=== PATIENT | female | born 1960 | race American Indian/Alaskan Native ===

== ENCOUNTER 2020-07-03 12:10 | Emergency (ER) | payer OTHER ==
[2020-07-03] MEDS ORDERED: IBUPROFEN 600 MG TAB PO ONE (12:43)
--- NOTE | 2020-07-03 13:02 | Event Note ---
ED Screening Note Date of service: 07/03/20 Time: 13:01 ED Screening Note: 60-year-old -[place] female presents to the emergency room for complaining of dizziness headache with body aches chest pain shortness of breath for a week. This initial assessment/diagnostic orders/clinical plan/treatment(s) is/are subject to change based on patients health status, clinical progression and re- assessment by fellow clinical providers in the ED. Further treatment and workup at subsequent clinical providers discretion. Patient/guardian urged not to elope from the ED as their condition may be serious if not clinically assessed and managed. Initial orders include:
[2020-07-03 13:16] LABS: Hematocrit 43.7 % (30.3-42.9); Mean Corpuscular HGB Conc 32 % (30-34); Mean Corpuscular Volume 82 fl (79-97); Platelet Count 246 K/mm3 (140-440); Red Blood Count 5.34 M/mm3 (3.65-5.03)
--- NOTE | 2020-07-03 13:25 | Cat Scan Report ---
CT HEAD WITHOUT CONTRAST INDICATION / CLINICAL INFORMATION: dizziness off balance. TECHNIQUE: All CT scans at this location are performed using CT dose reduction for ALARA by means of automated e xposure control. COMPARISON: None available. FINDINGS: HEMORRHAGE: None. EXTRA-AXIAL SPACES: Normal in size and morphology for the patient's age. VENTRICULAR SYSTEM: Normal in size and morphology for the patient's age. CEREBRAL PARENCHYMA: Mild hypoattenuation within the periventricular white matter compatible with chr onic microangiopathic disease. There are tiny chronic right basal ganglia lacunar-type infarcts versu s prominent perivascular spaces. No acute territorial infarct. MIDLINE SHIFT OR HERNIATION: None. CEREBELLUM / BRAINSTEM: No significant abnormality. ORBITS: Normal as visualized. SOFT TISSUES of HEAD: No significant abnormality. CALVARIUM: No significant abnormality. PARANASAL SINUSES / MASTOID AIR CELLS: Normal as visualized. ADDITIONAL FINDINGS: None. IMPRESSION: 1. No acute intracranial abnormality. 2. Mild age-appropriate atrophy and microangiopathic disease. Signer Name: Jcarlos Rivera MD Signed: 07/03/2020 1:21 PM Workstation Name: [id number]
--- NOTE | 2020-07-03 13:37 | XRay Report ---
CHEST 2 VIEWS INDICATION / CLINICAL INFORMATION: sob, chest pain. COMPARISON: None available. FINDINGS: SUPPORT DEVICES: None. HEART / MEDIASTINUM: No significant abnormality. LUNGS / PLEURA: No significant pulmonary or pleural abnormality. Several tiny calcified granulomata a re seen throughout the lungs. No pneumothorax. ADDITIONAL FINDINGS: No significant additional findings. IMPRESSION: No acute cardiopulmonary abnormality. Signer Name: Jcarlos Rivera MD Signed: 07/03/2020 1:32 PM Workstation Name: [id number]
--- NOTE | 2020-07-03 13:39 | Emergency Department Report ---
ED General Adult HPI - General Chief complaint: Pain General Stated complaint: UPPER BODY PAIN/DIZZY/HEADACHE Time Seen by Provider: 07/03/20 13:35 Source: patient Mode of arrival: Ambulatory Limitations: No Limitations - History of Present Illness Initial comments: This is a 60-year-old female with essentially multisystems complaint/along with grossly positive review of systems. The patient's chief complaint appears to be left anterior shoulder upper outer quadrant of the chest dull ache which generally occurs at night. She states her boyfriend puts a topical salve on it and that relieves the pain and helps her fall asleep. She has had the symptoms since 24 June. This is the first time that she has gone for a medical encounter although she attempted to get an appointment earlier. She states that she was not seen because she had requested a Covid test and directed to have that done. The test came back and was negative. 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 She has her temperature taken every day and she has been afebrile. Among her other symptoms she reports weakness, dizziness, urinary frequency, occasional cough. She does not complain of difficulty in breathing. Patient reports no chronic medical conditions. No surgery other than a hysterectomy. No current medications. -: week(s) (More than a week) Location: head, left (Shoulder and anterior chest) Radiation: non-radiation (And nonpleuritic) Severity scale (0 -10): 6 Quality: other (Heaviness) Consistency: intermittent (Unrelated to exercise) Improves with: other (Topical analgesia) Worsens with: none Associated Symptoms: cough (Seems to be infrequent), headaches, malaise, nausea/vomiting (States vomited yesterday), weakness. denies: shortness of breath Treatments Prior to Arrival: none - Related Data Previous Rx's Medication Instructions Recorded Last Taken Type Nitrofurantoin Lehigh/M-Cryst 100 mg PO Q12HR #14 capsule 07/03/20 Unknown Rx [Macrobid CAP] traMADoL [Ultram 50 MG tab] 50 mg PO Q6HR PRN #10 tablet 07/03/20 Unknown Rx Allergies Allergy/AdvReac Type Severity Reaction Status Date / Time No Known Allergies Allergy Unverified 07/03/20 12:22 ED Review of Systems ROS: Stated complaint: UPPER BODY PAIN/DIZZY/HEADACHE Other details as noted in HPI Constitutional: chills (Possibly no fever). denies: fever Eyes: denies: eye pain, vision change ENT: denies: ear pain, throat pain Respiratory: cough (Infrequent). denies: shortness of breath, wheezing Cardiovascular: as per HPI, chest pain. denies: palpitations Endocrine: no symptoms reported Gastrointestinal: vomiting (X1 yesterday). denies: abdominal pain, nausea, diarrhea Genitourinary: frequency. denies: urgency, dysuria, discharge Musculoskeletal: denies: back pain, joint swelling, arthralgia Skin: denies: rash, lesions Neurological: headache, other (No focal neurological change. No change in speech coordination or gait). denies: weakness, numbness, paresthesias Psychiatric: denies: anxiety, depression Hematological/Lymphatic: denies: easy bleeding, easy bruising ED Past Medical Hx - Past Medical History Previous Medical History?: Yes Hx Kidney Stones: Yes Additional medical history: Vaginal delivery x 2 - Surgical History Past Surgical History?: Yes Additional Surgical History: Hysterectomy - Social History Smoking Status: Never Smoker Substance Use Type: Alcohol - Medications Home Medications: Home Medications Medication Instructions Recorded Confirmed Last Taken Type Nitrofurantoin Lehigh/M-Cryst 100 mg PO Q12HR #14 capsule 07/03/20 Unknown Rx [Macrobid CAP] traMADoL [Ultram 50 MG tab] 50 mg PO Q6HR PRN #10 tablet 07/03/20 Unknown Rx ED Physical Exam - General Limitations: No Limitations General appearance: alert, in no apparent distress - Head Head exam: Present: atraumatic, normocephalic - Eye Eye exam: Present: normal appearance. Absent: scleral icterus - ENT ENT exam: Present: mucous membranes moist - Neck Neck exam: Present: normal inspection - Respiratory Respiratory exam: Present: normal lung sounds bilaterally, chest wall tenderness (In the area she refers). Absent: respiratory distress - Cardiovascular Cardiovascular Exam: Present: regular rate, normal rhythm. Absent: systolic murmur, diastolic murmur, rubs, gallop - GI/Abdominal GI/Abdominal exam: Present: soft, normal bowel sounds. Absent: distended, tenderness, guarding, rebound, rigid - Extremities Exam Extremities exam: Present: normal inspection - Back Exam Back exam: Present: normal inspection - Neurological Exam Neurological exam: Present: alert, oriented X3, CN II-XII intact. Absent: motor sensory deficit - Psychiatric Psychiatric exam: Present: normal mood, flat affect - Skin Skin exam: Present: warm, dry, intact, normal color. Absent: rash ED Course Vital Signs 07/03/20 07/03/20 07/03/20 12:23 12:47 13:44 Temperature 98.0 F Pulse Rate 61 57 L Respiratory 18 20 16 Rate Blood Pressure 111/80 Blood Pressure 125/80 [Left] O2 Sat by Pulse 98 100 Oximetry ED Medical Decision Making - Lab Data Result diagrams: 07/03/20 12:55 07/03/20 12:55 Laboratory Results - last 24 hr 07/03/20 07/03/20 07/03/20 12:55 12:55 12:55 WBC 7.6 RBC 5.34 H Hgb 14.0 Hct 43.7 H MCV 82 MCH 26 L MCHC 32 RDW 15.0 Plt Count 246 Sodium 140 Potassium 4.2 Chloride 105.7 Carbon Dioxide 28 Anion Gap 11 BUN 10 Creatinine 0.6 Estimated GFR > 60 BUN/Creatinine Ratio 17 Glucose 87 Calcium 9.3 Total Bilirubin 0.50 AST 14 ALT 10 Alkaline Phosphatase 61 Troponin T < 0.010 Total Protein 7.1 Albumin 4.3 Albumin/Globulin Ratio 1.5 Laboratory Results - last 24 hr 07/03/20 07/03/20 07/03/20 12:55 12:55 12:55 WBC 7.6 RBC 5.34 H Hgb 14.0 Hct 43.7 H MCV 82 MCH 26 L MCHC 32 RDW 15.0 Plt Count 246 Sodium 140 Potassium 4.2 Chloride 105.7 Carbon Dioxide 28 Anion Gap 11 BUN 10 Creatinine 0.6 Estimated GFR > 60 BUN/Creatinine Ratio 17 Glucose 87 Calcium 9.3 Total Bilirubin 0.50 AST 14 ALT 10 Alkaline Phosphatase 61 Troponin T < 0.010 Total Protein 7.1 Albumin 4.3 Albumin/Globulin Ratio 1.5 Urine Color Urine Turbidity Urine pH Ur Specific [place] Urine Protein Urine Glucose (UA) Urine Ketones Urine Blood Urine Nitrite Urine Bilirubin Urine Urobilinogen Ur Leukocyte Esterase Urine WBC (Auto) Urine RBC (Auto) U Epithel Cells (Auto) Urine Bacteria (Auto) Urine Mucus 07/03/20 Unknown WBC RBC Hgb Hct MCV MCH MCHC RDW Plt Count Sodium Potassium Chloride Carbon Dioxide Anion Gap BUN Creatinine Estimated GFR BUN/Creatinine Ratio Glucose Calcium Total Bilirubin AST ALT Alkaline Phosphatase Troponin T Total Protein Albumin Albumin/Globulin Ratio Urine Color Yellow Urine Turbidity Slightly-cloudy Urine pH 5.0 Ur Specific [place] 1.020 Urine Protein <15 mg/dl Urine Glucose (UA) Neg Urine Ketones Tr Urine Blood Neg Urine Nitrite Pos Urine Bilirubin Neg Urine Urobilinogen < 2.0 Ur Leukocyte Esterase Neg Urine WBC (Auto) 4.0 Urine RBC (Auto) 1.0 U Epithel Cells (Auto) 3.0 Urine Bacteria (Auto) 2+ Urine Mucus 3+ - EKG Data -: EKG Interpreted by Me EKG shows normal: sinus rhythm, axis, intervals, QRS complexes, ST-T waves Rate: bradycardia - EKG Data Interpretation: no acute changes Second EKG no evidence of ischemia 07/03/20 14:46 - Radiology Data IMPRESSION: 1. No acute intracranial abnormality. 2. Mild age-appropriate atrophy and microangiopathic disease. Critical care attestation.: If time is entered above; I have spent that time in minutes in the direct care of this critically ill patient, excluding procedure time. ED Disposition Clinical Impression: Atypical chest pain UTI (urinary tract infection) Qualifiers: Urinary tract infection type: site unspecified Hematuria presence: without hematuria Qualified Code(s): N39.0 - Urinary tract infection, site not specified Disposition: TO HOME OR SELFCARE Is pt being admited?: No Does the pt Need Aspirin: No Condition: Stable Instructions: Chest Pain (ED), Nonspecific Chest Pain, Adult, Chest Wall Pain, [id number], Urinary Tract Infection, Adult Additional Instructions: Antibiotic as directed. Follow-up on your urine culture test in the next 2 to 3 days with primary care doctor. Rx if needed for pain. Return to the emergency department any acute change or problem. 1 baby aspirin a day is recommended. Prescriptions: Nitrofurantoin Le[place]/M-Cryst [Macrobid CAP] 100 mg PO Q12HR #14 capsule traMADoL [Ultram 50 MG tab] 50 mg PO Q6HR PRN #10 tablet PRN Reason: Pain Referrals: GRAZYNA MANZO MD [Primary Care Provider] - 3-5 Days [facility] [Provider Group] - 2-3 Days ANTWAN MCGILL MD [Staff Physician] - 3-5 Days Time of Disposition: 15:25 HEART Score - HEART Score History: Slightly suspicious EKG: Normal Age: < 45 Risk factors: No known risk factors Troponin: Troponin T < 0.010 ng/mL (0.00-0.029) 07/03/20 12:55 Troponin: < normal limit HEART Score: 0 - Critical Actions Critical Actions: 0-3 pts:0.9-1.7%risk of adverse cardiac event.Candidate for discharge KELLEE score - Kellee Score Age > 65: (0) No Aspirin use within the Past 7 Days: (0) No 3 or more CAD Risk Factors: (0) No 2 or more Angina events in past 24 hrs: (0) No Known CAD with more than 50% Stenosis: (0) No Elevated Cardiac Markers: (0) No ST Deviation Greater than 0.5mm: (0) No KELLEE Score: 0
[2020-07-03 13:41] LABS: Alanine Aminotransferase 10 units/L (7-56); Albumin 4.3 g/dL (3.9-5); Blood Urea Nitrogen 10 mg/dL (7-17); Calcium 9.3 mg/dL (8.4-10.2); Hemolysis Index 0
[2020-07-03 13:47] LABS: BUN/Creatinine Ratio 17
[2020-07-03 13:48] VITALS: BP 125/80
[2020-07-03] MEDS ORDERED: traMADol 50 MG TAB PO ONE (14:23)
[2020-07-03 14:46] LABS: Bacteria,Urine 2+ /HPF (Negative); Bilirubin,Urine NEG (Negative); Blood,Urine NEG (Negative); Color,Urine Yellow (Yellow); Mucus,Urine 3+ /HPF; Protein,Urine <15 mg/dL mg/dL (Negative); Urobilinogen,Urine < 2.0 mg/dL (<2.0)
== END 2020-07-03 16:10 | disposition home or self-care (01) ==
LOC: ED 12:10
DX: N39.0 Urinary tract infection, site not specified (principal); R07.89 Other chest pain; Z79.899 Other long term (current) drug therapy; Z90.710 Acquired absence of both cervix and uterus; Z87.442 Personal history of urinary calculi
CPT/HCPCS: 36415; 70450; 71046; 80053; 81001; 84484; 85027; 87076; 87086; 87186; 93005